=== PATIENT | female | born 1980 | race Caucasian/White ===

== ENCOUNTER 2018-08-26 11:44 | Emergency (ER) | payer SELFPAY ==
[~2018-08-26] VITALS: Ht 170.2 cm; Wt 59.1 kg
[2018-08-26 11:53] VITALS: Ht 170.2 cm; Wt 59.1 kg
[2018-08-26] MEDS ORDERED: TORADOL10 MG PO (11:54)
[2018-08-26] MEDS ORDERED: CLEOCIN HCL75 MG (11:54)
[2018-08-26 13:50] VITALS: BP 122/75
== END 2018-08-26 14:56 | disposition home or self-care (01) ==
LOC: D.ER 11:44
DX: K04.7 Periapical abscess without sinus (principal)